=== PATIENT | female | born 1935 | race Caucasian/White ===

== ENCOUNTER → 2017-08-21 | Outpatient (CLI) | payer MEDICARE ==
[~2017-08-21] MED LIST: ALPR0.5T PO; ASPI-1005 PO; ATEN100T PO; ATOR40TA71 PO; CALC600T12 PO; LOSA1TAB37 PO; MELO-108 PO; MULT-1203 PO; NISO20TA PO
[2017-08-21 14:29] LABS: CREATININE 0.9 mg/dL (0.5-1.5)
== END | disposition home or self-care (01) ==
LOC: LAB 13:53
PROVIDERS: ATTEND Neurological Surgery
DX: M54.16 Radiculopathy, lumbar region (principal)
CPT/HCPCS: 36415; 82565; 84520

== ENCOUNTER → 2017-08-25 | Outpatient (CLI) | payer MEDICARE ==
[~2017-08-25] MED LIST changes: +GADOBENATE DIMEGLUMINE 10 ML IV ONE
== END | disposition home or self-care (01) ==
LOC: RAH 12:02
PROVIDERS: ATTEND Neurological Surgery
DX: M51.17 Intervertebral disc disorders with radiculopathy, lumbosacral region (principal); M48.07 Spinal stenosis, lumbosacral region; M47.27 Other spondylosis with radiculopathy, lumbosacral region; M25.78 Osteophyte, vertebrae
CPT/HCPCS: 72158; A9577

== ENCOUNTER → 2017-09-03 | Outpatient (CLI) | payer MEDICARE ==
[~2017-09-03] MED LIST changes: -GADOBENATE DIMEGLUMINE 10 ML IV ONE
== END | disposition home or self-care (01) ==
LOC: RAH 13:38
PROVIDERS: ATTEND Physical Medicine & Rehabilitation
DX: M47.892 Other spondylosis, cervical region (principal); M48.02 Spinal stenosis, cervical region
CPT/HCPCS: 72040

== ENCOUNTER → 2017-10-01 | Outpatient (CLI) | payer MEDICARE | END | disposition home or self-care (01) | LOC: RAH 12:05 | PROVIDERS: ATTEND Physical Medicine & Rehabilitation | DX: M50.30 Other cervical disc degeneration, unspecified cervical region (principal); M48.02 Spinal stenosis, cervical region; M25.78 Osteophyte, vertebrae | CPT/HCPCS: 72141 ==

== ENCOUNTER 2017-10-26 12:36 | Emergency (ER) | payer MEDICARE ==
[2017-10-26] MEDS ORDERED: DEXAMETHASONE SOD PHOSPHATE 10MG/ML 1ML VIAL ONE (13:31)
[2017-10-26] MEDS ORDERED: ONDANSETRON HCL 4 MG/2 ML VIAL ONE (13:31)
[2017-10-26] MEDS ORDERED: MORPHINE SULFATE 4 MG/1ML SYG ONE (13:32)
[2017-10-26] MEDS ORDERED: HYDROMORPHONE HCL 0.5 MG/0.5 ML ML ONE ×2 (14:36→15:09)
== END 2017-10-26 16:12 | disposition home or self-care (01) ==
LOC: EDH 12:36
DX: M54.16 Radiculopathy, lumbar region (principal); I10 Essential (primary) hypertension; E78.5 Hyperlipidemia, unspecified; Z98.890 Other specified postprocedural states; Z98.51 Tubal ligation status
CPT/HCPCS: 96374; 96375; 96376; 99284; J1100; J1170 ×2; J2270; J2405

== ENCOUNTER 2017-10-30 12:26 | Inpatient (IN) | payer MEDICARE ==
[~2017-10-30] VITALS: Ht 152.4 cm; Wt 62.8 kg
[2017-10-30] MEDS ORDERED: ONDANSETRON HCL 4 MG/2 ML VIAL ONE (12:40)
[2017-10-30] MEDS ORDERED: HYDROMORPHONE HCL 0.5 MG/0.5 ML ML ONE (12:41)
[2017-10-30 12:59] LABS: BASOPHILS % (AUTO) 0.5 % (0.0-5.0); HEMATOCRIT 44.2 % (36-48); LYMPHOCYTES % (AUTO) 26.6 % (21.0-51.0); MEAN CORPUSCULAR HEMOGLOBIN 29.5 pg (27.0-33.0); MEAN CORPUSCULAR HGB CONC 33.6 g/dL (32.0-36.0); MEAN CORPUSCULAR VOLUME 87.8 fL (79-99); MONOCYTES % (AUTO) 9.9 % (3.0-13.0); NUCLEATED RED BLOOD CELLS 0.1 % (0.0-0.19); PLATELET COUNT (AUTO) 346 K/uL (130-400); RED BLOOD CELL COUNT(AUTO) 5.03 MIL/uL (4.00-5.50); RED CELL DISTRIBUTION WIDTH 13.4 % (11.0-15.5); WHITE BLOOD COUNT (AUTO) 11.8 K/uL (4.8-10.8)
[2017-10-30 13:07] LABS: CREATININE 0.8 mg/dL (0.5-1.5)
[2017-10-30 13:12] LABS: ALBUMIN 3.6 g/dL (3.5-5.0); BILIRUBIN,TOTAL 0.3 mg/dL (0.2-1.0); TOTAL PROTEIN, SERUM 7.9 g/dL (6.0-8.3)
[2017-10-30 14:02] LABS: APPEARANCE,URINE Clear (CLEAR); BILIRUBIN,URINE Negative (NEGATIVE); COLOR,URINE Yellow (YELLOW); GLUCOSE, URINE (UA) Negative (NEGATIVE); KETONES,URINE Negative (NEGATIVE); LEUKOCYTE ESTERASE ,URINE Negative (NEGATIVE); NITRATE,URINE Negative (NEGATIVE); OCCULT BLOOD,URINE Negative (NEGATIVE); PH,URINE 6.5 (5.0-8.0); PROTEIN,URINE POS 1+ (NEGATIVE); UROBILINOGEN,URINE 0.2 mg/dL (0.2-1.0)
[2017-10-30] MEDS ORDERED: KETOROLAC TROMETHAMINE 15MG/ML ONE (14:04)
[2017-10-30 14:27] LABS: BACTERIA,URINE Rare /HPF (None Seen); RBC,URINE None Seen /HPF (0-1); WBC,URINE 0-1 /HPF (0-1)
[2017-10-30 14:28] LABS: SQUAMOUS EPITHELIAL CELL,UR 0-2 /HPF (0-2)
[2017-10-30] MEDS ORDERED: DEXTROSE 5 % AND 0.9 % NACL 1,000 ML IV ONE (15:53)
[2017-10-30 17:00] VITALS: BP 154/70
[2017-10-30] MEDS ORDERED: MULT-1203 PO (17:05)
[2017-10-30] MEDS ORDERED: MELO-108 PO (17:05)
[2017-10-30] MEDS ORDERED: ASPI-1005 PO (17:05)
[2017-10-30] MEDS ORDERED: LOSA1TAB37 PO (17:05)
[2017-10-30] MEDS ORDERED: ALPR0.5T PO (17:05)
[2017-10-30] MEDS ORDERED: NISO20TA PO (17:05)
[2017-10-30] MEDS ORDERED: CALC600T12 PO (17:05)
[2017-10-30] MEDS ORDERED: ATEN100T PO (17:05)
[2017-10-30] MEDS ORDERED: ATOR40TA71 PO (17:05)
[2017-10-30] MEDS ORDERED: ACETAMINOPHEN 325 MG TAB PO PRN (19:15)
[2017-10-30] MEDS ORDERED: ONDANSETRON HCL 4 MG/2 ML VIAL IVP PRN (19:15)
[2017-10-30 19:20] VITALS: BP 162/77
[2017-10-30] MEDS: MORPHINE SULFATE 4 MG/1ML SYG IVP PRN (19:20)
[2017-10-30] MEDS: DEXTROSE 5 % AND 0.9 % NACL 1,000 ML IV SCH (19:32)
[2017-10-30] MEDS: KETOROLAC TROMETHAMINE 15MG/ML IV PRN (20:55)
[2017-10-30 23:05] VITALS: BP 116/58
[2017-10-30] MEDS ORDERED: HYDRALAZINE HCL 20 MG/ML VIAL IV PRN (23:45)
[2017-10-31] MEDS: DEXTROSE 5 % AND 0.9 % NACL 1,000 ML IV SCH ×2 (02:50→17:51)
[2017-10-31 03:15] VITALS: BP 127/68
[2017-10-31] MEDS: MORPHINE SULFATE 4 MG/1ML SYG IVP PRN ×2 (03:30→16:34)
[2017-10-31 07:36] VITALS: BP 144/75
[2017-10-31] MEDS: KETOROLAC TROMETHAMINE 15MG/ML IV PRN ×2 (08:32→21:15)
[2017-10-31] MEDS ORDERED: LISINOPRIL 10 MG TABLET PO SCH (09:00)
[2017-10-31 11:37] VITALS: BP 117/64
[2017-10-31 16:03] VITALS: BP 112/69
[2017-10-31 19:15] VITALS: BP 135/69
[2017-10-31] MEDS: ALPRAZOLAM 0.5 MG TABLET PO SCH (21:14)
[2017-10-31] MEDS: ATORVASTATIN CALCIUM 40 MG TABLET PO SCH (21:14)
[2017-10-31 23:10] VITALS: BP 112/51
[2017-11-01] MEDS: MORPHINE SULFATE 4 MG/1ML SYG IVP PRN ×3 (01:48→20:01)
[2017-11-01 03:10] VITALS: BP 123/53
[2017-11-01] MEDS: DEXTROSE 5 % AND 0.9 % NACL 1,000 ML IV SCH ×2 (06:05→20:01)
[2017-11-01 07:56] VITALS: BP 121/68
[2017-11-01] MEDS ORDERED: LOSARTAN/HYDROCHLOROTHIAZIDE 50-12.5MG TABLET PO SCH (09:00)
[2017-11-01] MEDS: AMLODIPINE BESYLATE 2.5 MG TAB PO SCH (09:16)
[2017-11-01] MEDS: ATENOLOL 50 MG TABLET PO SCH (09:16)
[2017-11-01] MEDS: DOCUSATE SODIUM 100 MG CAP PO SCH ×2 (13:31→20:01)
[2017-11-01] MEDS: KETOROLAC TROMETHAMINE 15MG/ML IV PRN (13:32)
[2017-11-01 16:28] VITALS: BP 142/74
[2017-11-01 19:20] VITALS: BP 147/74
[2017-11-01] MEDS: ALPRAZOLAM 0.5 MG TABLET PO SCH (20:01)
[2017-11-01] MEDS: ATORVASTATIN CALCIUM 40 MG TABLET PO SCH (20:01)
[2017-11-01 23:10] VITALS: BP 150/74
[2017-11-02 03:15] VITALS: BP 131/78
[2017-11-02] MEDS: MORPHINE SULFATE 4 MG/1ML SYG IVP PRN ×3 (03:20→20:28)
[2017-11-02 06:08] LABS: BASOPHILS % (AUTO) 0.8 % (0.0-5.0); EOSINOPHILS % (AUTO) 3.5 % (0.0-8.0); HEMATOCRIT 37.3 % (36-48); LYMPHOCYTES % (AUTO) 33.5 % (21.0-51.0); MEAN CORPUSCULAR HEMOGLOBIN 30.2 pg (27.0-33.0); MEAN CORPUSCULAR HGB CONC 34.1 g/dL (32.0-36.0); MEAN CORPUSCULAR VOLUME 88.5 fL (79-99); MONOCYTES % (AUTO) 13.3 % (3.0-13.0); NEUTROPHILS % (AUTO) 48.9 % (40.0-77.0); PLATELET COUNT (AUTO) 267 K/uL (130-400); RED BLOOD CELL COUNT(AUTO) 4.21 MIL/uL (4.00-5.50); WHITE BLOOD COUNT (AUTO) 9.7 K/uL (4.8-10.8)
[2017-11-02] MEDS: KETOROLAC TROMETHAMINE 15MG/ML IV PRN ×2 (06:15→22:56)
[2017-11-02 06:25] LABS: CREATININE 0.5 mg/dL (0.5-1.5); POTASSIUM 3.4 mmol/L (3.5-5.1)
[2017-11-02 07:27] VITALS: BP 114/62
[2017-11-02] MEDS: CEFAZOLIN SODIUM 1 GM VIAL IVP SCH (08:15)
[2017-11-02] MEDS: LOSARTAN/HYDROCHLOROTHIAZIDE 50-12.5MG TABLET PO SCH (09:00)
[2017-11-02] MEDS: ASPIRIN 81MG TAB.CHEW PO SCH (09:30)
[2017-11-02] MEDS: ATENOLOL 50 MG TABLET PO SCH (09:30)
[2017-11-02] MEDS: AMLODIPINE BESYLATE 2.5 MG TAB PO SCH (09:30)
[2017-11-02] MEDS: DOCUSATE SODIUM 100 MG CAP PO SCH ×2 (09:30→20:29)
[2017-11-02] MEDS: DEXTROSE 5 % AND 0.9 % NACL 1,000 ML IV SCH (09:31)
[2017-11-02 11:20] VITALS: BP 133/70
[2017-11-02] MEDS ORDERED: POTASSIUM CHLORIDE 20MEQ/100ML 100 ML IV PRN (12:15)
[2017-11-02] MEDS ORDERED: LIDOCAINE HCL-MPF 1% 2ML VIAL IVP PRN (12:15)
[2017-11-02] MEDS ORDERED: POTASSIUM CHLORIDE 10% ELIXIR 20 MEQ/15 ML UDCUP PO PRN (12:15)
[2017-11-02] MEDS: POTASSIUM CHLORIDE 20 MEQ ERTAB PO PRN ×2 (13:13→15:29)
[2017-11-02 16:25] VITALS: BP 144/79
[2017-11-02 20:16] VITALS: BP 182/84
[2017-11-02] MEDS: ATORVASTATIN CALCIUM 40 MG TABLET PO SCH (20:29)
[2017-11-02] MEDS: ALPRAZOLAM 0.5 MG TABLET PO SCH (20:29)
[2017-11-03] VITALS (20 sets, daily range): BP systolic 99–132; BP diastolic 45–87
[2017-11-03] MEDS: MORPHINE SULFATE 4 MG/1ML SYG IVP PRN (05:06)
[2017-11-03 05:09] LABS: HEMATOCRIT 39.4 % (36-48); MEAN CORPUSCULAR HEMOGLOBIN 31.1 pg (27.0-33.0); MEAN CORPUSCULAR HGB CONC 35.2 g/dL (32.0-36.0); MEAN CORPUSCULAR VOLUME 88.5 fL (79-99); PLATELET COUNT (AUTO) 315 K/uL (130-400); RED BLOOD CELL COUNT(AUTO) 4.46 MIL/uL (4.00-5.50); RED CELL DISTRIBUTION WIDTH 13.2 % (11.0-15.5); WHITE BLOOD COUNT (AUTO) 10.3 K/uL (4.8-10.8)
[2017-11-03 05:15] LABS: CREATININE 0.7 mg/dL (0.5-1.5); MAGNESIUM 1.5 mg/dL (1.80-2.40)
[2017-11-03 05:21] LABS: INR 1.04 (0.85-1.15); PARTIAL THROMBOPLASTIN TIME 24.1 SEC (26.3-35.5); PROTHROMBIN TIME 10.9 SEC (9.6-11.6)
[2017-11-03] MEDS: ATENOLOL 50 MG TABLET PO SCH (06:18)
[2017-11-03] MEDS ORDERED: DURAMORPH PF1 MG/ML 10ML AMP IV ONE (06:40)
[2017-11-03] MEDS ORDERED: EPINEPHRINE 1 MG/ML AMPULE ONE (06:40)
[2017-11-03] MEDS ORDERED: BACITRACIN 50,000 UNIT VIAL ONE (06:40)
[2017-11-03] MEDS ORDERED: BUPIVACAINE/PF 0.25% 30ML VIAL IJ ONE (06:40)
[2017-11-03] MEDS ORDERED: THROMBIN-JMI 20000 UNIT KIT TP ONE (06:40)
[2017-11-03] MEDS ORDERED: LACTATED RINGERS 1000ML 1,000 ML IV ONE (07:10)
[2017-11-03] MEDS ORDERED: ONDANSETRON HCL 4 MG/2 ML VIAL ONE ×2 (07:44→09:39)
[2017-11-03] MEDS ORDERED: LIDOCAINE PF 2% 5ML ABBOJECT ONE (07:44)
[2017-11-03] MEDS ORDERED: NEOSTIGMINE 5MG/5ML SYR IV ONE (07:44)
[2017-11-03] MEDS ORDERED: GLYCOPYRROLATE 0.2 MG/ML 5 ML VIAL ONE (07:44)
[2017-11-03] MEDS ORDERED: DEXAMETHASONE SOD PHOSPHATE 10MG/ML 1ML VIAL ONE ×2 (07:44→09:39)
[2017-11-03] MEDS ORDERED: FENTANYL CITRATE PF 50 MCG/1 ML 2ML VIAL ONE ×2 (07:48→09:28)
[2017-11-03] MEDS ORDERED: MIDAZOLAM HCL 1 MG/ML 2ML VIAL ONE (07:48)
[2017-11-03] MEDS ORDERED: PROPOFOL 10 MG/ML 20ML VIAL IV ONE (07:48)
[2017-11-03] MEDS ORDERED: ESMOLOL HCL 10 MG/ML 10 ML VIAL ONE (07:50)
[2017-11-03] MEDS: ASPIRIN 81MG TAB.CHEW PO SCH (08:00)
[2017-11-03] MEDS ORDERED: EPHEDRINE SULFATE 50 MG/ML AMPULE ONE (09:00)
[2017-11-03] MEDS: CEFAZOLIN SODIUM 1 GM VIAL IVP SCH (09:00)
[2017-11-03] MEDS: DOCUSATE SODIUM 100 MG CAP PO SCH ×2 (09:00→19:34)
[2017-11-03] MEDS: AMLODIPINE BESYLATE 2.5 MG TAB PO SCH (09:00)
[2017-11-03] MEDS: LOSARTAN/HYDROCHLOROTHIAZIDE 50-12.5MG TABLET PO SCH (09:00)
[2017-11-03] MEDS ORDERED: ARTIFICIAL TEARS 3.5 GM OINTMENT ONE (09:29)
[2017-11-03] MEDS ORDERED: GENTAMICIN SULFATE 80 MG/2 ML VIAL ONE (09:34)
[2017-11-03] MEDS ORDERED: ROCURONIUM BROMIDE 10MG/1ML 5ML VL ONE ×2 (09:38→09:39)
[2017-11-03] MEDS ORDERED: SUCCINYLCHOLINE CHLORIDE 20 MG/ML 10 ML VIAL ONE (09:39)
[2017-11-03] MEDS ORDERED: METOCLOPRAMIDE 10 MG/2 ML VIAL ONE (09:39)
[2017-11-03] MEDS ORDERED: LIDOCAINE HCL 4% LTA SOL 4 ML VIAL ONE (09:39)
[2017-11-03] MEDS ORDERED: LIDOCAINE HCL 2% JELLY 5 ML ONE (09:40)
[2017-11-03] MEDS ORDERED: SUB TO ALBUTEROL 2.5MG/3ML NEBULES PER P&T IH ONE (11:50)
[2017-11-03] MEDS ORDERED: SODIUM CHLORIDE 0.9% 10 ML VIAL IVP PRN (12:15)
[2017-11-03] MEDS ORDERED: MORPHINE SULFATE 4 MG/1ML SYG IVP PRN (12:15)
[2017-11-03] MEDS ORDERED: PROMETHAZINE HCL 25 MG/ML 1ML AMPULE IM PRN (12:15)
[2017-11-03] MEDS: LACTATED RINGERS 1000ML 1,000 ML IV SCH (13:35)
[2017-11-03] MEDS: DEXAMETHASONE SOD PHOSPHATE 4 MG/ML 1ML VIAL IVP SCH ×3 (13:35→22:57)
[2017-11-03] MEDS: CLINDAMYCIN 900 MG/D5% WATER 50 ML IV SCH ×3 (13:35→22:57)
[2017-11-03] MEDS: ALPRAZOLAM 0.5 MG TABLET PO SCH ×2 (19:34→22:58)
[2017-11-03] MEDS: ATORVASTATIN CALCIUM 40 MG TABLET PO SCH (19:34)
[2017-11-03] MEDS: NISOLDIPINE 20 MG PO SCH (21:00)
[2017-11-04 00:08] VITALS: BP 127/68
[2017-11-04] MEDS: LACTATED RINGERS 1000ML 1,000 ML IV SCH ×2 (01:15→14:51)
[2017-11-04 04:08] VITALS: BP 148/81
[2017-11-04] MEDS: DEXAMETHASONE SOD PHOSPHATE 4 MG/ML 1ML VIAL IVP SCH ×4 (04:53→23:07)
[2017-11-04 05:17] LABS: HEMATOCRIT 36.2 % (36-48); MEAN CORPUSCULAR HEMOGLOBIN 29.8 pg (27.0-33.0); MEAN CORPUSCULAR HGB CONC 34.1 g/dL (32.0-36.0); MEAN CORPUSCULAR VOLUME 87.6 fL (79-99); PLATELET COUNT (AUTO) 307 K/uL (130-400); RED BLOOD CELL COUNT(AUTO) 4.13 MIL/uL (4.00-5.50); RED CELL DISTRIBUTION WIDTH 13.3 % (11.0-15.5); WHITE BLOOD COUNT (AUTO) 18.3 K/uL (4.8-10.8)
[2017-11-04 05:36] LABS: CREATININE 0.6 mg/dL (0.5-1.5); MAGNESIUM 1.4 mg/dL (1.80-2.40); POTASSIUM 3.9 mmol/L (3.5-5.1)
[2017-11-04 08:04] VITALS: BP 117/68
[2017-11-04] MEDS ORDERED: MAGNESIUM 2GM PREMIX 50ML 50 ML IV SCH (08:45)
[2017-11-04] MEDS: LOSARTAN/HYDROCHLOROTHIAZIDE 50-12.5MG TABLET PO SCH ×2 (09:00→09:05)
[2017-11-04] MEDS: NISOLDIPINE 20 MG PO SCH ×2 (09:00→20:01)
[2017-11-04] MEDS: MELOXICAM 7.5 MG TABLET PO SCH (09:04)
[2017-11-04] MEDS: MULTIVITAMIN TABLET PO SCH (09:04)
[2017-11-04] MEDS: DOCUSATE SODIUM 100 MG CAP PO SCH ×2 (09:04→19:57)
[2017-11-04] MEDS: AMLODIPINE BESYLATE 2.5 MG TAB PO SCH (09:04)
[2017-11-04] MEDS: ATENOLOL 50 MG TABLET PO SCH (09:05)
[2017-11-04] MEDS: ASPIRIN 81MG TAB.CHEW PO SCH (09:05)
[2017-11-04] MEDS: HYDROCODONE/ACETAMINOPHEN 5/325 MG TAB PO PRN (09:08)
[2017-11-04] MEDS: CALCIUM CARBONATE 500 MG TABLET PO SCH (09:10)
[2017-11-04 11:50] VITALS: BP 110/57
[2017-11-04 16:12] VITALS: BP 122/70
[2017-11-04] MEDS: ALPRAZOLAM 0.5 MG TABLET PO SCH (19:56)
[2017-11-04] MEDS: MORPHINE SULFATE 4 MG/1ML SYG IVP PRN (19:56)
[2017-11-04] MEDS: ATORVASTATIN CALCIUM 40 MG TABLET PO SCH (19:56)
[2017-11-04 20:17] VITALS: BP 121/67
[2017-11-05] VITALS (12 sets, daily range): BP systolic 128–170; BP diastolic 68–98
[2017-11-05] MEDS: LACTATED RINGERS 1000ML 1,000 ML IV SCH ×2 (03:58→17:31)
[2017-11-05] MEDS: DEXAMETHASONE SOD PHOSPHATE 4 MG/ML 1ML VIAL IVP SCH ×3 (05:55→18:15)
[2017-11-05] MEDS: DOCUSATE SODIUM 100 MG CAP PO SCH ×2 (08:17→19:58)
[2017-11-05] MEDS: MELOXICAM 7.5 MG TABLET PO SCH (08:17)
[2017-11-05] MEDS: ASPIRIN 81MG TAB.CHEW PO SCH (08:17)
[2017-11-05] MEDS: LOSARTAN/HYDROCHLOROTHIAZIDE 50-12.5MG TABLET PO SCH (08:18)
[2017-11-05] MEDS: MULTIVITAMIN TABLET PO SCH (08:18)
[2017-11-05] MEDS: ATENOLOL 50 MG TABLET PO SCH (08:18)
[2017-11-05] MEDS: NISOLDIPINE 20 MG PO SCH ×2 (08:18→19:59)
[2017-11-05] MEDS: AMLODIPINE BESYLATE 2.5 MG TAB PO SCH ×2 (08:18→08:26)
[2017-11-05] MEDS: MORPHINE SULFATE 4 MG/1ML SYG IVP PRN ×3 (08:23→20:05)
[2017-11-05] MEDS: CALCIUM CARBONATE 500 MG TABLET PO SCH (08:29)
[2017-11-05] MEDS: ALPRAZOLAM 0.5 MG TABLET PO SCH (19:58)
[2017-11-05] MEDS: ATORVASTATIN CALCIUM 40 MG TABLET PO SCH (19:58)
[2017-11-06 04:00] VITALS: BP 134/76
[2017-11-06] MEDS: LACTATED RINGERS 1000ML 1,000 ML IV SCH (06:03)
[2017-11-06 07:14] VITALS: BP 146/75
[2017-11-06] MEDS: DOCUSATE SODIUM 100 MG CAP PO SCH (08:48)
[2017-11-06] MEDS: MULTIVITAMIN TABLET PO SCH (08:48)
[2017-11-06] MEDS: ASPIRIN 81MG TAB.CHEW PO SCH (08:49)
[2017-11-06] MEDS: MELOXICAM 7.5 MG TABLET PO SCH (08:49)
[2017-11-06] MEDS: NISOLDIPINE 20 MG PO SCH (08:49)
[2017-11-06] MEDS: LOSARTAN/HYDROCHLOROTHIAZIDE 50-12.5MG TABLET PO SCH (08:49)
[2017-11-06] MEDS: ATENOLOL 50 MG TABLET PO SCH (08:49)
[2017-11-06] MEDS: AMLODIPINE BESYLATE 2.5 MG TAB PO SCH ×2 (08:49→09:00)
[2017-11-06] MEDS: CALCIUM CARBONATE 500 MG TABLET PO SCH (08:49)
[2017-11-06] MEDS: HYDROCODONE/ACETAMINOPHEN 5/325 MG TAB PO PRN (08:53)
[2017-11-06 11:33] VITALS: BP 117/60
== END 2017-11-06 11:15 | DRG 517 ==
LOC: EDH 12:26 → EDHIP 14:35 → 4AH 17:03
PROVIDERS: ADMIT Family Medicine; ATTEND Family Medicine
PROC: 01NB0ZZ Release Lumbar Nerve, Open Approach (ICD-10-PCS; principal; 2017-11-03 08:50)
PROC: 4A11X4G Monitoring of Peripheral Nervous Electrical Activity, Intraoperative, External Approach (ICD-10-PCS; 2017-11-03 08:50)
DX: M51.16 Intervertebral disc disorders with radiculopathy, lumbar region (principal); I10 Essential (primary) hypertension; E78.5 Hyperlipidemia, unspecified; D72.829 Elevated white blood cell count, unspecified; G89.29 Other chronic pain; Z98.51 Tubal ligation status
CPT/HCPCS: 36415; 70450; 71045; 72020; 72131; 80048; 80053; 81001; 83735; 85025; 85027; 85610; 85730; 93005; 97039; A4218; J0171; J0330; J0690; J1100; J1170; J1580; J1885; J2001; J2250; J2270; J2274; J2405; J2704; J2710; J2765; J3010; J3475; J3490; J7042; J7120

== ENCOUNTER 2018-12-06 12:30 | Inpatient (IN) | payer MEDICARE ==
[~2018-12-06] VITALS: Ht 152.4 cm; Wt 59.6 kg
[2018-12-06 10:33] LABS: EOSINOPHILS % (AUTO) 1.7 % (0.0-8.0); HEMATOCRIT 40.8 % (36-48); LYMPHOCYTES % (AUTO) 41.9 % (21.0-51.0); MEAN CORPUSCULAR HEMOGLOBIN 30.6 pg (27.0-33.0); MEAN CORPUSCULAR HGB CONC 34.1 g/dL (32.0-36.0); MEAN CORPUSCULAR VOLUME 89.7 fL (79-99); MONOCYTES % (AUTO) 9.4 % (3.0-13.0); NUCLEATED RED BLOOD CELLS 0.1 % (0.0-0.19); PLATELET COUNT (AUTO) 299 K/uL (130-400); RED BLOOD CELL COUNT(AUTO) 4.55 MIL/uL (4.00-5.50); RED CELL DISTRIBUTION WIDTH 13.6 % (11.0-15.5); WHITE BLOOD COUNT (AUTO) 7.5 K/uL (4.8-10.8)
[2018-12-06 10:35] VITALS: BP 140/66
[2018-12-06 10:41] LABS: CREATININE 0.8 mg/dL (0.5-1.5); POTASSIUM 4.4 mmol/L (3.5-5.1)
[~2018-12-06 12:30] MED LIST changes: -ATOR40TA71 PO; -LOSA1TAB37 PO; -MELO-108 PO; +NIFE10CA PO; -NISO20TA PO
[2018-12-09] MEDS ORDERED: CEFAZOLIN SODIUM 1 GM VIAL IVP SCH (06:00)
[2018-12-15] VITALS (26 sets, daily range): BP systolic 117–146; BP diastolic 50–84
[2018-12-15] MEDS: CEFAZOLIN SODIUM 1 GM VIAL ONE ×2 (06:51→09:30)
[2018-12-15] MEDS ORDERED: LACTATED RINGERS 1000ML 1,000 ML IV ONE (07:01)
[2018-12-15] MEDS ORDERED: BUPIVACAINE/EPI/PF 0.25% 50 ML VIAL ONE (07:08)
[2018-12-15] MEDS ORDERED: DURAMORPH PF1 MG/ML 10ML AMP IV ONE (07:08)
[2018-12-15] MEDS ORDERED: BACITRACIN 50,000 UNIT VIAL ONE (07:09)
[2018-12-15] MEDS ORDERED: THROMBIN-JMI 20000 UNIT KIT TP ONE (07:09)
[2018-12-15] MEDS ORDERED: LIDOCAINE PF 2% 5ML ABBOJECT ONE ×2 (09:29→09:30)
[2018-12-15] MEDS ORDERED: GLYCOPYRROLATE 1 MG/5 ML SYRINGE ONE ×2 (09:29→12:57)
[2018-12-15] MEDS ORDERED: SUCCINYLCHOLINE 200MG/10ML SYR ONE (09:29)
[2018-12-15] MEDS ORDERED: DEXAMETHASONE SOD PHOSPHATE 10MG/ML 1ML VIAL ONE (09:29)
[2018-12-15] MEDS ORDERED: NEOSTIGMINE 5MG/5ML SYR IV ONE (09:30)
[2018-12-15] MEDS ORDERED: ROCURONIUM 10MG/1ML SYR 10 MG/ML ML ONE (09:30)
[2018-12-15] MEDS ORDERED: ONDANSETRON HCL 4 MG/2 ML VIAL ONE (09:30)
[2018-12-15] MEDS ORDERED: PROPOFOL 10 MG/ML 20ML VIAL IV ONE (09:30)
[2018-12-15] MEDS ORDERED: FENTANYL CITRATE PF 50 MCG/1 ML 2ML VIAL ONE ×2 (09:30→11:54)
[2018-12-15] MEDS ORDERED: CEFAZOLIN SODIUM 1 GM VIAL ONE (13:05)
[2018-12-15] MEDS: LACTATED RINGERS 1000ML 1,000 ML IV SCH (13:25)
[2018-12-15] MEDS ORDERED: MORPHINE SULFATE 2 MG/ML 1ML SYG IVP PRN (13:30)
[2018-12-15] MEDS ORDERED: SODIUM CHLORIDE 0.9% 10 ML VIAL IVP PRN (13:30)
[2018-12-15] MEDS: DEXAMETHASONE SOD PHOSPHATE 4 MG/ML 1ML VIAL IVP SCH ×2 (13:30→20:13)
[2018-12-15] MEDS ORDERED: PROMETHAZINE HCL 25 MG/ML 1ML AMPULE IM PRN (13:30)
[2018-12-15] MEDS ORDERED: HYDROCODONE/ACETAMINOPHEN 5/325 MG TAB PO PRN (13:30)
[2018-12-15] MEDS ORDERED: CEFAZOLIN SODIUM 1 GM VIAL IVP SCH (13:30)
[2018-12-15] MEDS ORDERED: MEPERIDINE-PF 25 MG/ML SYG ONE (13:41)
--- NOTE | 2018-12-15 14:50 | NUR ---
PT ARRIVED TO THE FLOOR RESPIRATIONS OF 7-8 BP 131/56 HEART RATE 56 SAT. 99% 3 LITERS AT BED SIDE TEMP 97.1 CHARGE NURSE AT BED SIDE
--- NOTE | 2018-12-15 15:20 | NUR ---
ANESTHESIOLOGIST CALLED, ASKED IF PT HAD RECEIVED NARCAN FOR DEMEROL ADVERSE REACTION QUIRINO ANESTHESIOLOGIST STATED HE WOULD CHECK AWARE OF PT'S VITAL SIGNS
--- NOTE | 2018-12-15 15:28 | NUR ---
PAGED DR. TOLENTINO ,SPOKE WITH DR. TOLENTINO'S ASSISTANCE GAVE REPORT OF PT'S FINDING SWOLLEN LIP AND TALKING SOMEWHAT MUMBLING , A BIT OF SWOLLEN TONGUE NO SINGS OF NEUROLOGICAL DEFICETS NOTED HUSBANDS AGREES, PT'S LIP IS SWOLLEN (TOP) AND SHE IS TALKING "FUNNY " AND NOT LIKE HER SELF ASAEL SAID, IT WAS MORE THAN LIKELY FROM THE INTUBATION DURING ANESTHESIA AND THE WAY THE PATIENT WAS PLACED DURING THE SURGERY , NO NEW ORDERS GIVEN JUST TO MONITOR PT AND CALL HER BACK IN AN HR AT BED SIDE
--- NOTE | 2018-12-15 15:35 | NUR ---
QUIRINO MARIE CALLED AGAIN , AWARE OF PT'S VITAL SIGNS RESPIRATIONS STILL 7-8 FROY IN THE LOW 50'S STATED TO CONTINUE TO MONITOR AND THAT PATIENT WAS STABLE
[2018-12-15] MEDS: TRAMADOL HCL 50 MG TABLET PO SCH ×2 (16:45→22:45)
[2018-12-15] MEDS: CALCIUM CARBONATE 500 MG TABLET PO SCH (20:23)
[2018-12-15] MEDS: ASPIRIN 81MG TAB.CHEW PO SCH (20:23)
[2018-12-15] MEDS: NIFEDIPINE ER 30 MG TAB PO SCH (20:23)
[2018-12-15] MEDS: ALPRAZOLAM 1 MG TAB PO SCH (20:24)
[2018-12-16] MEDS: DEXAMETHASONE SOD PHOSPHATE 4 MG/ML 1ML VIAL IVP SCH ×2 (01:17→07:30)
[2018-12-16] MEDS: LACTATED RINGERS 1000ML 1,000 ML IV SCH ×2 (02:59→17:46)
[2018-12-16] MEDS ORDERED: TRAMADOL HCL 50 MG TABLET PO PRN ×2 (03:15→21:15)
[2018-12-16 04:55] VITALS: BP 129/59
[2018-12-16 06:07] LABS: HEMATOCRIT 33.3 % (36-48); MEAN CORPUSCULAR HEMOGLOBIN 30.4 pg (27.0-33.0); MEAN CORPUSCULAR HGB CONC 34.4 g/dL (32.0-36.0); MEAN CORPUSCULAR VOLUME 88.4 fL (79-99); PLATELET COUNT (AUTO) 234 K/uL (130-400); RED BLOOD CELL COUNT(AUTO) 3.77 MIL/uL (4.00-5.50); RED CELL DISTRIBUTION WIDTH 13.6 % (11.0-15.5); WHITE BLOOD COUNT (AUTO) 8.7 K/uL (4.8-10.8)
[2018-12-16 06:19] LABS: CREATININE 0.6 mg/dL (0.5-1.5); POTASSIUM 3.6 mmol/L (3.5-5.1)
[2018-12-16 08:00] VITALS: BP 134/61
[2018-12-16] MEDS: CALCIUM CARBONATE 500 MG TABLET PO SCH ×2 (09:00→21:03)
[2018-12-16] MEDS ORDERED: CETIRIZINE HCL 5 MG TABLET PO PRN ×2 (09:00)
[2018-12-16] MEDS: ATENOLOL 50 MG TABLET PO SCH (09:00)
[2018-12-16] MEDS: MULTIVITAMIN TABLET PO SCH (09:00)
[2018-12-16] MEDS: NIFEDIPINE ER 30 MG TAB PO SCH ×2 (09:31→21:03)
[2018-12-16 12:00] VITALS: BP 157/81
[2018-12-16 16:00] VITALS: BP 152/72
[2018-12-16 19:40] VITALS: BP 139/67
[2018-12-16] MEDS: ALPRAZOLAM 1 MG TAB PO SCH (21:03)
[2018-12-16] MEDS: ASPIRIN 81MG TAB.CHEW PO SCH (21:03)
[2018-12-16] MEDS: HYDROCODONE/ACETAMINOPHEN 5/325 MG TAB PO PRN (22:48)
[2018-12-16 23:32] VITALS: BP 119/56
[2018-12-17 03:49] VITALS: BP 111/52
[2018-12-17] MEDS: MORPHINE SULFATE 2 MG/ML 1ML SYG IVP PRN ×3 (04:22→21:16)
[2018-12-17 05:05] LABS: HEMATOCRIT 33.4 % (36-48); MEAN CORPUSCULAR HEMOGLOBIN 30.2 pg (27.0-33.0); MEAN CORPUSCULAR HGB CONC 33.9 g/dL (32.0-36.0); MEAN CORPUSCULAR VOLUME 89.1 fL (79-99); PLATELET COUNT (AUTO) 211 K/uL (130-400); RED BLOOD CELL COUNT(AUTO) 3.75 MIL/uL (4.00-5.50); RED CELL DISTRIBUTION WIDTH 13.6 % (11.0-15.5); WHITE BLOOD COUNT (AUTO) 13.7 K/uL (4.8-10.8)
[2018-12-17 05:23] LABS: CREATININE 0.7 mg/dL (0.5-1.5)
[2018-12-17 05:30] LABS: POTASSIUM 2.9 mmol/L (3.5-5.1)
[2018-12-17] MEDS ORDERED: POTASSIUM CHLORIDE 10% ELIXIR 20 MEQ/15 ML UDCUP PO PRN (05:45)
[2018-12-17] MEDS ORDERED: POTASSIUM CHLORIDE 20 MEQ ERTAB PO PRN (05:45)
[2018-12-17] MEDS ORDERED: POTASSIUM CHLORIDE 20MEQ/100ML 100 ML IV PRN (05:45)
[2018-12-17] MEDS ORDERED: LIDOCAINE HCL-MPF 1% 2ML VIAL IVP PRN (05:45)
[2018-12-17] MEDS ORDERED: POTASSIUM CHLORIDE 10% ELIXIR 20 MEQ/15 ML UDCUP ONE (06:18)
[2018-12-17 08:00] VITALS: BP 130/67
[2018-12-17] MEDS: LACTATED RINGERS 1000ML 1,000 ML IV SCH (08:04)
[2018-12-17] MEDS: HYDROCODONE/ACETAMINOPHEN 5/325 MG TAB PO PRN ×3 (08:14→18:46)
[2018-12-17] MEDS: ATENOLOL 50 MG TABLET PO SCH (09:00)
[2018-12-17] MEDS: NIFEDIPINE ER 30 MG TAB PO SCH ×2 (09:00→21:13)
[2018-12-17 11:00] VITALS: BP 128/66
--- NOTE | 2018-12-17 11:00 | NUR ---
INITIAL MET W PT /SPOUSE AT BEDSIDE TO DISCUSS ORDER FO RREHAB BY DR. TOLENTINO. PT W LIVE W SPOUSE,WHO ALSO HAS SOME MOBILITY ISSUES AND IS VERY [place]. PT IS SEMI INDP W ADLS. HAS WKR,WC AND S/CHAIR, DOES NOT DRIVE, AT THIS TIME HAS A PAID PROVIDER TO HELP W ADLS/HOUSEKEEPING HOME IS SAFE AND ACCESSIBLE. HAVING SOME TROUBLE UNDERSTANDING REHAB LEVLES OF CARE BUT PT WANTS TO RY TO HAVE INSURANCE SEND TO INPATIENT LEVLE OF CARE SO EDY FOR [facility] AND [facility] SIGNED, REFERRAL SENT TO [facility] AND [facility] INITIALED, CALL TO ROBERTA TOLENTINO OFFIC RE INSURANCE AND SNF VS [facility]PR[facility]. ORDERS RECD. Addendum: 12/17/18 at 2014 by ANAHI QUIROGA RN CM Amended: Links added.
[2018-12-17] MEDS: CALCIUM CARBONATE 500 MG TABLET PO SCH ×2 (13:08→21:13)
[2018-12-17] MEDS: MULTIVITAMIN TABLET PO SCH (13:08)
--- NOTE | 2018-12-17 14:30 | NUR ---
DECLINED AT [facility], REFERRAL TO [facility], PARDEEP SANTIAGO, HONEY FAXED, PT INFORMED, Addendum: 12/17/18 at 2016 by ANAHI QUIROGA RN CM Amended: Links added.
[2018-12-17 16:00] VITALS: BP 128/69
[2018-12-17] MEDS ORDERED: ENOXAPARIN SODIUM 30 MG/0.3 ML SQ SCH (17:00)
--- NOTE | 2018-12-17 17:02 | NUR ---
AUTHORIZED? CALL RECD FROM CESIA ALVARADO THAT [facility] REP WAS TRYING TO CONTACT CM TO INFORM PT AND CM THAT PT WAS AUTHORIZED FOR [facility] BUT RN STATED REP SAID SHE SHOULD TELL THE PATIENT. ADVISED PARDEEP WHO ASKED FOR AN AUTH NUMBER?, BUT NO NUMBER GIVEN YET. STATED SHE WOULD FOLLOW UP IN AM. ADVISED PT THAT INSURANCE HAD APPROVED HER SNF CARE, BUT THAT THERE WAS STILL PAPERWORK TO PROCESS AND THAT WOULD NOT HAPPEN UNTIL TOMORROW. VERBALIZED UNDERSTANDING Addendum: 12/17/18 at 2020 by ANAHI QUIROGA RN CM Amended: Links added.
[2018-12-17 19:07] VITALS: BP 140/71
[2018-12-17] MEDS: ASPIRIN 81MG TAB.CHEW PO SCH (21:13)
[2018-12-17] MEDS: BISACODYL 5 MG TABLET.DR PO SCH (21:13)
[2018-12-17] MEDS: ALPRAZOLAM 1 MG TAB PO SCH (21:14)
[2018-12-17 23:15] VITALS: BP 127/67
[2018-12-18 03:55] VITALS: BP 129/72
[2018-12-18 04:13] LABS: HEMATOCRIT 32.4 % (36-48); MEAN CORPUSCULAR HEMOGLOBIN 29.9 pg (27.0-33.0); MEAN CORPUSCULAR HGB CONC 33.7 g/dL (32.0-36.0); MEAN CORPUSCULAR VOLUME 88.7 fL (79-99); PLATELET COUNT (AUTO) 230 K/uL (130-400); RED BLOOD CELL COUNT(AUTO) 3.65 MIL/uL (4.00-5.50); RED CELL DISTRIBUTION WIDTH 13.4 % (11.0-15.5); WHITE BLOOD COUNT (AUTO) 11.2 K/uL (4.8-10.8)
[2018-12-18 04:23] LABS: CREATININE 0.7 mg/dL (0.5-1.5); POTASSIUM 3.8 mmol/L (3.5-5.1)
[2018-12-18] MEDS: HYDROCODONE/ACETAMINOPHEN 5/325 MG TAB PO PRN ×2 (07:49→16:47)
[2018-12-18 08:00] VITALS: BP 134/77
[2018-12-18] MEDS: CALCIUM CARBONATE 500 MG TABLET PO SCH ×2 (08:58→21:22)
[2018-12-18] MEDS: MULTIVITAMIN TABLET PO SCH (08:58)
[2018-12-18] MEDS: BISACODYL 5 MG TABLET.DR PO SCH ×2 (08:58→21:00)
--- NOTE | 2018-12-18 08:58 | NUR ---
cm note received call from Teresa gottlieb from [facility], and states pt has been accepted, and insuranceapproved, also they have arranged for transport, and pt can go today, updated [place] primary nurse of above. will followup.
[2018-12-18] MEDS: ATENOLOL 50 MG TABLET PO SCH (09:00)
[2018-12-18] MEDS ORDERED: ENOXAPARIN SODIUM 30 MG/0.3 ML SQ SCH (09:00)
[2018-12-18] MEDS: NIFEDIPINE ER 30 MG TAB PO SCH ×2 (09:00→21:22)
--- NOTE | 2018-12-18 09:00 | NUR ---
PATIENT REPORTS PAIN AND NO BOWEL MOVEMENT PATIENT INFORMED OF ACCEPTANCE TO [facility] AND PLAN FOR DISCHARGE/TRANSFER MD ORDERED. PATIENT STATES "I JUST DON'T KNOW IF I CAN GO TODAY, I DON'T THINK I WILL MAKE IT AT THE REHAB BECAUSE MY PAIN IS TOO STRONG. I CAN'T EVEN MOVE WHEN MY BACK HURTS." PATIENT ALSO HAS NOT HAD A BOWEL MOVEMENT SINCE 12/15/18. PATIENT REPORTS PASSING GAS, BUT NO BOWEL MOVEMENT. PRUNE JUICE GIVEN TO PATIENT WELL ADMINISTERED DULCOLAX 10MG PO. WILL CONTINUE REASSESS FOR BOWEL MOVEMENT AND PAIN CONTROL.
--- NOTE | 2018-12-18 10:25 | NUR ---
/ASAEL SPOKE TO ASAEL OF DR. TOLENTINO AND INFORMED HER THAT [facility] HAS ACCEPTED PATIENT. ASAEL DID PROVIDED ORDERS FOR MEDICATION RECONCILIATION. RX FOR TRAMADOL IN PATIENT CHART ALREADY. ASAEL STATES THAT TRAMADOL RX IS THE ONLY PAIN MEDICATION DR. TOLENTINO WILL PRESCRIBE, THAT HE WILL NOT PRESCRIBED ANYTHING STRONGER. ASAEL ALSO GAVE ORDERS TO GIVE PATIENT MAGNESIUM CITRATE BOTTLE AND PROCEED WITH DISCHARGE/TRANSFER WHEN PATIENT HAS A BOWEL MOVEMENT.
[2018-12-18] MEDS ORDERED: MAGNESIUM CITRATE 296 ML SOLUTION PO PRN (10:45)
[2018-12-18 11:00] VITALS: BP 106/54
[2018-12-18 16:00] VITALS: BP 127/68
--- NOTE | 2018-12-18 18:00 | NUR ---
BOWEL MOVEMENT PATIENT HAS HAD AN EFFECTIVE BOWEL MOVEMENT NOW. WILL PROCEED WITH DISCHARGE.
--- NOTE | 2018-12-18 18:20 | NUR ---
ATTEMPT TO CALL [facility] TO GIVE REPORT CALLED [facility] AT [phone] TO GIVE REPORT. SPOKE TO NURSE CALHOUN AND HE TOLD ME THAT HE COULD NOT OBTAIN REPORT UNTIL PATIENT MEDICAL RECORDS REGARDING HOSPITAL STAY WHERE FAXED TO FACILITY FIRST. I TOLD UNIQUE THAT I HAD SPOKEN TO CLINICAL LIAISON, PARDEEP TROTTER AND SHE HAD TOLD ME THAT FAXING PATIENT MEDICAL RECORDS WAS NOT A REQUIREMENT PRIOR TO GIVING REPORT. I TOLD UNIQUE THAT PATIENT CHART COPY CONTAINING PATIENT MEDICAL RECORDS WOULD BE SENT WITH PATIENT AT DISCHARGE. NURSE CALHOUN REPLIED THAT HE "DID NOT KNOW A PARDEEP" AND HE CAN NOT GET REPORT.
--- NOTE | 2018-12-18 18:30 | NUR ---
PARDEEP TROTTER CALLED CLINICAL LIAISON, PARDEEP TROTTER, TO INFORM HER THAT I WAS HAVING TROUBLE GIVING NURSE REPORT. SHE REPLIED THAT SHE WOULD CALL THE NURSES STATION TO FIGURE OUT THE ISSUE. I PROVIDED MY DIRECT CALLBACK NUMBER TO PARDEEP TROTTER SO I COULD BE CONTACTED WHEN ABLE TO GIVE REPORT TO [facility].
[2018-12-18 19:08] VITALS: BP 129/71
--- NOTE | 2018-12-18 19:45 | NUR ---
VICENTA BAR RECEIVED TELEPHONE CALL FROM VICENTA BAR, DIESEL ENGINE MECHANIC APPRENTICE OF [facility], AND SHE EXPLAINED TO ME THAT SHE SPOKE TO PARDEEP TROTTER REGARDING ISSUE WITH GIVING REPORT. VICENTA BAR EXPLAINED TO ME THAT AT THE [place] LOCATION, NURSING STAFF REQUIRE A "ARTIS" AND MEDICATION RECONCILIATION PAPERWORK PRIOR TO NURSE REPORT. I ASKED VICENTA Hassan WHAT IS REQUIRED IN "ARTIS" FORM AND VICENTA Hassan ANSWERED THAT SHE WAS NOT SURE BECAUSE THAT FORM IS USUALLY HANDLED BY THE NURSING STAFF. I REPLIED THAT I WOULD BE UNABLE TO PRODUCE "ARTIS" I DO NOT KNOW WHAT IS REQUIRED AND CASE MANAGEMENT NOT AVAILABLE AT THIS TIME. VICENTA BAR REPLIED TO JUST FAX MEDICATIONS RECONCILIATION PAPERWORK TO [phone] AND THE NURSE WOULD CALL BACK TO RECEIVE NURSE REPORT. DIRECT CALLBACK NUMBER PROVIDED TO VICENTA Hassan TO PROVIDED TO NURSING STAFF AT [facility].
--- NOTE | 2018-12-18 20:04 | NUR ---
VICENTA BAR RECEIVED CALLBACK FROM VICENTA BAR AND SHE TOLD ME SHE HAD GIVEN ME THE WRONG FAX NUMBER. CORRECT FAX NUMBER IS [phone]. SENT MEDICATION RECONCILATION PAPERWORK AGAIN TO CORRECTED FAX NUMBER.
[2018-12-18] MEDS: ASPIRIN 81MG TAB.CHEW PO SCH (21:22)
[2018-12-18] MEDS: ALPRAZOLAM 1 MG TAB PO SCH (21:22)
[2018-12-18 23:27] VITALS: BP 128/76
[2018-12-19 03:58] VITALS: BP 119/57
--- NOTE | 2018-12-19 08:00 | NUR ---
REPORT RECEIVED PHONE CALL FROM SARAI ROBERTS OF [facility] IN [place]. SARAI ROBERTS ASKED FOR NURSE REPORT PRIOR TO PATIENT TRANSFER. I INFORMED SARAI ROBERTS THAT NURSING REPORT HAD ALREADY BEEN DONE BY SCIENTIFIC SPECIALIST NURSE PRIOR TO MY START OF SHIFT AND PATIENT IS AWAITING TO BE PICKED UP AND TRANSFERRED TO FACILITY. SARAI ROBERTS REPLIED THAT SHE DID NOT RECEIVE NURSE REPORT SO SHE ASKED FOR ME TO GIVE NURSE REPORT TO HER AGAIN. PROVIDED REPORT TO SARAI ROBERTS AND INFORMED OF DROlayinka SIX DISCHARGE ORDERS (INCISION DRESSING ORDERS, INCISION STAPLE REMOVAL DATE, PHYSICAL THERAPY, F/U PENDING TO BE SCHEDULED) AND ORIGINAL RX (TRAMADOL) WILL BE PLACED IN PATIENT CHART COPY FOLDER. PROVIDED NURSES STATION NUMBER TO SARAI RAMON IF SHE HAD ANY QUESTIONS UPON PATIENT ARRIVAL TO FACILITY.
[2018-12-19 08:04] VITALS: BP 129/60
[2018-12-19] MEDS: HYDROCODONE/ACETAMINOPHEN 5/325 MG TAB PO PRN (08:59)
--- NOTE | 2018-12-19 09:30 | NUR ---
DISCHARGE DISCHARGE INSTRUCTIONS PROVIDED TO PATIENT. INFORMED PATIENT OF DISCHARGE RX (TRAMADOL), F/U WITH DR. TOLENTINO PENDING TO BE SCHEDULED AFTER DISCHARGE FROM REHAB FACILITY, AND MD DISCHARGE ORDERS. PATIENT VERBALIZED UNDERSTANDING OF DISCHARGE TEACHING. REMOVED 20F IV FROM LEFT FA, CATHETER TIP INTACT. PENDING TO BE PICKED UP BY EMS FOR TRANSPORT TO [facility] IN [place].
== END 2018-12-19 10:20 | DRG 517 ==
LOC: EDSTATUS 12:30 → DAHIP 12-15 05:49 → OBSVTOIN 12-15 05:49 → 4BH 12-15 14:04
PROVIDERS: ADMIT Neurological Surgery; ATTEND Neurological Surgery
PROC: BR1B1ZZ Fluoroscopy of Lumbosacral Joint using Low Osmolar Contrast (ICD-10-PCS; 2018-12-15)
PROC: 01NB0ZZ Release Lumbar Nerve, Open Approach (ICD-10-PCS; principal; 2018-12-15 09:54)
PROC: 01NR0ZZ Release Sacral Nerve, Open Approach (ICD-10-PCS; 2018-12-15 09:54)
PROC: 4A11X4G Monitoring of Peripheral Nervous Electrical Activity, Intraoperative, External Approach (ICD-10-PCS; 2018-12-15 09:54)
PROC: BR191ZZ Fluoroscopy of Lumbar Spine using Low Osmolar Contrast (ICD-10-PCS; 2018-12-15 09:54)
DX: M48.061 Spinal stenosis, lumbar region without neurogenic claudication (principal); E87.6 Hypokalemia; I10 Essential (primary) hypertension; G89.29 Other chronic pain; E78.5 Hyperlipidemia, unspecified; R00.1 Bradycardia, unspecified; F41.9 Anxiety disorder, unspecified; M89.38 Hypertrophy of bone, other site; M51.27 Other intervertebral disc displacement, lumbosacral region; M51.26 Other intervertebral disc displacement, lumbar region; M54.16 Radiculopathy, lumbar region; M25.78 Osteophyte, vertebrae; M48.07 Spinal stenosis, lumbosacral region; M54.17 Radiculopathy, lumbosacral region; Z83.3 Family history of diabetes mellitus; Z82.49 Family history of ischemic heart disease and other diseases of the circulatory system; Z82.5 Family history of asthma and other chronic lower respiratory diseases; Z79.899 Other long term (current) drug therapy
CPT/HCPCS: 36415; 72020; 80048; 84132; 85025; 85027; 97039; A4344; G0378; J0330; J0690; J1100; J1650; J2001; J2175; J2274; J2405; J2550; J2704; J2710; J3010; J3480; J3490; J7030; J7120